=== PATIENT | female | born 1985 ===

== ENCOUNTER → 2025-01-19 | Outpatient (CLI) | payer BC ==
[2025-01-19 15:11] LABS: Anion Gap 14.0 mmol/L (6-16); Blood Urea Nitrogen 14.0 mg/dL (8-24); CO2, Blood 28.0 mmol/L (21-32); Calcium, Blood 9.0 mg/dL (8.5-10.1); Chloride, Blood 102.0 mmol/L (98-108); Creatinine, Blood 0.91 mg/dL (0.40-1.00); Glucose, Blood 98.0 mg/dL (70-99); Potassium, Blood 3.6 mmol/L (3.5-5.5); Sodium, Blood 140.0 mmol/L (136-145)
== END | disposition home or self-care (01) ==
LOC: LAB SHORT 15:02 → LAB 15:02
PROVIDERS: Family Medicine
DX: N20.0 Calculus of kidney (principal)
CPT/HCPCS: 80048